=== PATIENT | female | born 1950 | race Caucasian/White ===

== ENCOUNTER 2020-01-19 13:30 | Outpatient (CLI) | payer MEDICARE ==
[2020-01-19 14:31] LABS: ABG BASE EXCESS 1.3 mmol/L (-2.0-2.0); ABG HCO3 25.8 mmol/L (22.0-26.0); ABG OXYGEN SATURATION 92.6 % (94-97); ABG PCO2 (T) 40.4 mmHg (32.0-45.0); ABG PO2 (T) 63.2 mmHg (75.0-100.0); ALLEN'S TEST POSITIVE; FCOHb 0.9 % (0.0-3.9); FO2Hb 91.8 % (94-97); TOTAL HEMOGLOBIN 13.9 G/dl (12.0-16.0)
== END 2020-01-19 23:59 | disposition home or self-care (01) ==
LOC: RT 13:30
DX: J98.8 Other specified respiratory disorders (principal); J44.9 Chronic obstructive pulmonary disease, unspecified; I70.0 Atherosclerosis of aorta; I70.8 Atherosclerosis of other arteries; I27.81 Cor pulmonale (chronic)
CPT/HCPCS: 36600; 71046; 78582; 82803; 85018; A9539; A9540

== ENCOUNTER 2022-02-13 13:26 | Emergency (ER) | payer MEDICARE ==
[~2022-02-13] VITALS: Ht 170.2 cm; Wt 56.8 kg
[2022-02-13] MEDS ORDERED: BEBTELOVIMAB 175 MG/2 ML VIAL IV ONE (14:05)
[2022-02-13 16:01] VITALS: BP 150/88
== END 2022-02-13 16:08 | disposition home or self-care (01) ==
LOC: ER 13:27
DX: U07.1 COVID-19 (principal); J44.1 Chronic obstructive pulmonary disease with (acute) exacerbation
CPT/HCPCS: 99284; M0222; Q0222